=== PATIENT | female | born 1985 | race Caucasian/White ===

== ENCOUNTER → 2018-11-18 | Outpatient (REF) | payer MEDICARE | LOC: M LAB REF 12:29 | PROVIDERS: ATTEND Physician Assistant | DX: R30.0 Dysuria (principal) ==

== ENCOUNTER → 2018-11-29 | Outpatient (REF) | payer MEDICARE, MEDICAID ==
[2018-11-29 11:39] LABS: ALBUMIN 3.6 GM/DL (3.2-5.2); ALT/SGPT 32 U/L (12-78); BILIRUBIN,TOTAL 0.4 MG/DL (0.2-1.0); BLOOD UREA NITROGEN 28 MG/DL (7-18); CALCIUM LEVEL 8.3 MG/DL (8.5-10.1); CARBON DIOXIDE LEVEL 27 MEQ/L (21-32); CHLORIDE LEVEL 110 MEQ/L (98-107); CHOLESTEROL LEVEL 203 MG/DL (<200); CHOLESTEROL RISK RATIO 2.671 (<5); CREATININE FOR GFR 0.61 MG/DL (0.55-1.30); GLOMERULAR FILTRATION RATE > 60.0 (>60); GLUCOSE, FASTING 90 MG/DL (70-100); HDL CHOLESTEROL 76 MG/DL (>40); LDL CHOLESTEROL 121 MG/DL (<100); NON-HDL-C 127 MG/DL; POTASSIUM SERUM 4.3 MEQ/L (3.5-5.1); SODIUM LEVEL 142 MEQ/L (136-145); THYROID STIMULATING HORMONE 0.996 uIU/ML (0.358-3.740); TOTAL PROTEIN 6.8 GM/DL (6.4-8.2); TRIGLYCERIDES LEVEL 28 MG/DL (<150)
== END ==
LOC: M SFHCPLAZ 08:07
PROVIDERS: ATTEND Nurse Practitioner Family
DX: Z00.00 Encounter for general adult medical examination without abnormal findings (principal); Z13.220 Encounter for screening for lipoid disorders; F41.8 Other specified anxiety disorders

== ENCOUNTER → 2019-01-12 | Outpatient (CLI) | payer MEDICARE, MEDICAID ==
[2019-01-12 11:43] LABS: FREE T4 0.96 NG/DL (0.76-1.46); THYROID STIMULATING HORMONE 1.3 uIU/ML (0.358-3.740)
== END ==
LOC: M LAB 10:39
PROVIDERS: ATTEND Internal Medicine Gastroenterology
DX: R10.84 Generalized abdominal pain (principal)

== ENCOUNTER 2019-01-19 08:07 | Emergency (ER) | payer MEDICARE, MEDICAID ==
[~2019-01-19] VITALS: Ht 167.6 cm; Wt 82.8 kg
[2019-01-19] MEDS ORDERED: MONT10TA2 (08:16)
[2019-01-19] MEDS ORDERED: ALL10TAB28 (08:16)
[2019-01-19] MEDS ORDERED: FLON1SPR NARES (08:16)
[2019-01-19] MEDS ORDERED: KETOROLAC 30 MG/ML VIAL (J1885) IV ONE (08:45)
[2019-01-19 09:22] LABS: BASO % 0.3 % (0.0-1.0); EOS # 0.1 10^3/uL (0.0-0.50); HEMATOCRIT 42.8 % (36.0-47.0); HEMOGLOBIN 14.2 g/dl (12.0-15.5); LYMPH # 1.5 10^3/uL (1.5-4.5); MEAN CORPUSCULAR HEMOGLOBIN 30.3 pg (27.0-33.0); MEAN CORPUSCULAR HGB CONC 33.2 g/dl (32.0-36.5); MEAN CORPUSCULAR VOLUME 91.3 fl (80.0-96.0); MONO # 0.7 10^3/uL (0.0-0.8); NEUTROPHILS # 4.2 10^3/uL (1.8-7.7); NEUTROPHILS % 64.5 % (36.0-66.0); PLATELET COUNT, AUTOMATED 122 10^3/uL (150-450); RED BLOOD COUNT 4.69 10^6/uL (4.00-5.40); WHITE BLOOD COUNT 6.5 10^3/uL (4.0-10.0)
[2019-01-19 09:46] LABS: ALBUMIN 3.4 GM/DL (3.2-5.2); ALT/SGPT 37 U/L (12-78); BILIRUBIN,DIRECT 0.1 MG/DL (0.0-0.2); BILIRUBIN,TOTAL 0.4 MG/DL (0.2-1.0); BLOOD UREA NITROGEN 26 MG/DL (7-18); CARBON DIOXIDE LEVEL 26 MEQ/L (21-32); CHLORIDE LEVEL 110 MEQ/L (98-107); CREATININE FOR GFR 0.62 MG/DL (0.55-1.30); GLOMERULAR FILTRATION RATE > 60.0 (>60); GLUCOSE, FASTING 89 MG/DL (70-100); LIPASE 125 U/L (73-393); SODIUM LEVEL 140 MEQ/L (136-145); TOTAL PROTEIN 6.5 GM/DL (6.4-8.2)
[2019-01-19] MEDS ORDERED: NS 1,000 ML IV ONE (10:15)
[2019-01-19] MEDS ORDERED: MORPHINE 2 MG/ML 1ML SYRINGE (J2270) IV ONE (10:30)
--- NOTE | 2019-01-19 10:55 | REP ---
PELVIC ULTRASOUND: Real-time sonographic evaluation of the pelvis performed utilizing transabdominal and endovaginal technique. Bladder measures 8.8 x 4.0 x 10.0 cm. Uterus measures 7.3 x 4.2 x 4.6 cm. Endometrial thickness is 34 mm and there appears to be a large amount of complex material within the endometrial cavity. Reportedly the patient has not menstruated. Right ovary is normal in size and echotexture, measuring 4.0 x 3.0 x 2.7 cm. There is no torsion. Left ovary cannot be visualized. I see no adnexal mass or free fluid. IMPRESSION: Large amount of complex material in the endometrial canal. Reportedly the patient has never had menstruation. Normal right ovary. Left ovary not visualized. No mass or free fluid seen. Electronically Signed by Gene Nicole MD 01/20/2019 12:10 P
[2019-01-19] MEDS ORDERED: MACR100C43 PO (11:27)
[2019-01-19 11:43] VITALS: BP 126/75
--- NOTE | 2019-01-23 15:16 | ED PDOC ---
Post-Departure Follow-Up dr ame chris faxed formal report of pelvic us for fu Celso Zarate MD January 23, 2019 15:16
== END 2019-01-19 11:51 | disposition home or self-care (01) ==
LOC: M ED 08:07
DX: N30.90 Cystitis, unspecified without hematuria (principal); D69.6 Thrombocytopenia, unspecified; Z88.0 Allergy status to penicillin; Z88.8 Allergy status to other drugs, medicaments and biological substances; Z91.048 Other nonmedicinal substance allergy status
CPT/HCPCS: 76856; 80048; 80076; 81001; 81025; 83605; 83690; 85025; 87088; 87186; 96374; 96375; 99284; J1885; J2270

== ENCOUNTER → 2019-04-06 | Outpatient (CLI) | payer MEDICARE, MEDICAID ==
[~2019-04-06] MED LIST: ALL10TAB28; FLON1SPR NARES; MACR100C43 PO; MONT10TA2; OXYC1TAB23 PO; PROHANCE 279.3MG/ML 15ML VIAL (A9576) As Ordered ONE; PROHANCE 279.3MG/ML 5ML VIAL (A9576) As Ordered ONE; ULTR50TA8 PO
--- NOTE | 2019-04-07 10:54 | REP ---
MRI PELVIS WITH AND WITHOUT CONTRAST: Multiple sequences obtained in the axial, coronal, and sagittal planes prior to and following the intravenous administration of 16.2 mL ProHance. There appears to be a hypoplastic uterus present which is deviated significantly toward the left of midline. Approximate length of the uterus is 7.5 cm, approximate AP dimension 3 cm and transverse 3.3 cm. Fluid is seen in the endometrial canal, maximum AP diameter is 7 mm. There is no definite abnormal signal in the junctional zone or myometrium. Ovaries are normal. No adnexal mass is seen. Normal size follicles are seen in each ovary. The left ovary is located superiorly in the left pelvis between the psoas muscle and left colon. There appears to be a very small amount of free fluid in the left inferior pelvis. Visualized osseous structures demonstrate no marrow signal abnormality. There is no adenopathy in the pelvis. IMPRESSION: Hypoplastic uterus deviated to the left of midline as discussed above. Fluid is seen in the endometrial canal with AP diameter of 7 mm. Normal ovaries. No mass. There appears to be a very small amount of free fluid in the left inferior pelvis. Electronically Signed by Gene Nicole MD 04/09/2019 07:21 P
== END ==
LOC: M RAD 16:03
PROVIDERS: ATTEND Obstetrics & Gynecology
DX: Q51.818 Other congenital malformations of uterus (principal)
CPT/HCPCS: 72197; A9576

== ENCOUNTER → 2019-05-01 | Outpatient (CLI) | payer MEDICARE, MEDICAID ==
[~2019-05-01] MED LIST changes: +OMEP-221; -PROHANCE 279.3MG/ML 15ML VIAL (A9576) As Ordered ONE; -PROHANCE 279.3MG/ML 5ML VIAL (A9576) As Ordered ONE; +RANI150T14; +RANI1TAB38 PO
[2019-05-01 13:43] LABS: BASO # 0.1 10^3/uL (0.0-0.2); BASO % 0.8 % (0.0-1.0); EOS # 0.1 10^3/uL (0.0-0.50); HEMATOCRIT 46.1 % (36.0-47.0); HEMOGLOBIN 15.2 g/dl (12.0-15.5); LYMPH % 45.9 % (24.0-44.0); MEAN CORPUSCULAR HEMOGLOBIN 30.2 pg (27.0-33.0); MEAN CORPUSCULAR VOLUME 91.5 fl (80.0-96.0); MONO # 0.6 10^3/uL (0.0-0.8); NEUTROPHILS # 2.7 10^3/uL (1.8-7.7); NEUTROPHILS % 42.1 % (36.0-66.0); PLATELET COUNT, AUTOMATED 142 10^3/uL (150-450); RED BLOOD COUNT 5.04 10^6/uL (4.00-5.40); WHITE BLOOD COUNT 6.4 10^3/uL (4.0-10.0)
== END ==
LOC: M LAB 12:21
PROVIDERS: ATTEND Obstetrics & Gynecology
DX: N91.2 Amenorrhea, unspecified (principal)

== ENCOUNTER 2019-05-07 10:22 | Emergency (ER) | payer MEDICARE, MEDICAID ==
[~2019-05-07] VITALS: Ht 167.6 cm; Wt 75.0 kg
[~2019-05-07 10:22] MED LIST changes: -ALL10TAB28; +ALL10TAB29; -OMEP-221; -RANI150T14; -RANI1TAB38 PO
[2019-05-07] MEDS ORDERED: OMEP-221 (10:37)
[2019-05-07] MEDS ORDERED: RANI1TAB38 PO (10:37)
[2019-05-07] MEDS ORDERED: RANI150T14 (10:37)
[2019-05-07 11:31] LABS: BASO % 0.6 % (0.0-1.0); EOS # 0.1 10^3/uL (0.0-0.50); EOS % 2.6 % (0.0-3.0); HEMATOCRIT 39.5 % (36.0-47.0); HEMOGLOBIN 12.9 g/dl (12.0-15.5); LYMPH # 2.1 10^3/uL (1.5-4.5); LYMPH % 44.5 % (24.0-44.0); MEAN CORPUSCULAR HEMOGLOBIN 30.4 pg (27.0-33.0); MEAN CORPUSCULAR HGB CONC 32.7 g/dl (32.0-36.5); MEAN CORPUSCULAR VOLUME 93.2 fl (80.0-96.0); MONO # 0.3 10^3/uL (0.0-0.8); MONO % 7.1 % (0.0-5.0); NEUTROPHILS # 2.1 10^3/uL (1.8-7.7); PLATELET COUNT, AUTOMATED 137 10^3/uL (150-450); RED BLOOD COUNT 4.24 10^6/uL (4.00-5.40); WHITE BLOOD COUNT 4.7 10^3/uL (4.0-10.0)
[2019-05-07 11:43] LABS: INR 1.11
[2019-05-07 11:49] LABS: ALBUMIN 3.1 GM/DL (3.2-5.2); ALT/SGPT 47 U/L (12-78); BILIRUBIN,TOTAL 0.2 MG/DL (0.2-1.0); BLOOD UREA NITROGEN 18 MG/DL (7-18); CALCIUM LEVEL 8.4 MG/DL (8.5-10.1); CARBON DIOXIDE LEVEL 29 MEQ/L (21-32); CHLORIDE LEVEL 110 MEQ/L (98-107); CK-MB VALUE MASS < 1.0 NG/ML (<3.6); CPK CREATINE PHOSPHOKINASE 258 U/L (26-192); GLOMERULAR FILTRATION RATE > 60.0 (>60); GLUCOSE, FASTING 97 MG/DL (70-100); LIPASE 148 U/L (73-393); MB/CK RELATIVE INDEX 0.39 (< OR =4); POTASSIUM SERUM 3.7 MEQ/L (3.5-5.1); SODIUM LEVEL 141 MEQ/L (136-145); TOTAL PROTEIN 6.5 GM/DL (6.4-8.2); TROPONIN I < 0.02 NG/ML (< 0.10)
[2019-05-07] MEDS ORDERED: ISOVUE-370 76% 100ML VIAL (Q9967) As Ordered ONE (12:02)
[2019-05-07 14:16] VITALS: BP 111/70
--- NOTE | 2019-05-07 14:41 | REP ---
LEFT LOWER EXTREMITY DOPPLER VENOUS ULTRASOUND: 05/07/2019. Clinical history: Lower extremity swelling, evaluate for DVT. Comparison: None. Technique: The deep venous system of the left lower extremity is evaluated with amin scale imaging, compression ultrasound, color imaging and duplex Doppler interrogation. Examination from the groin through the popliteal fossa into the proximal calf. Findings: There is full compressibility from the common femoral vein in the inguinal region through the popliteal vein. Color imaging confirms patency throughout the course of the deep venous system. There is respiratory variation and augmented flow at all levels. Impression: 1. No Doppler venous ultrasound evidence of DVT in the left lower extremity. Electronically Signed by Tristin Madden MD 05/07/2019 08:38 P
--- NOTE | 2019-05-07 19:25 | ECGEPIP ---
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
--- NOTE | 2019-05-08 08:09 | REP ---
AP PORTABLE CHEST: 05/07/2019. Clinical history: Chest pain. Findings: No prior study. Lungs mildly hypoinflated but there is still a left ventricular configuration to the heart. No effusion or acute infiltrate. No addison edema. The aorta and airway are intact. There is no widening of the mediastinum. There is a question of a small amount of free air under the diaphragm. Bones intact. Impression: 1. Lungs hypoinflated which may exaggerate heart size although there is a left ventricular configuration. 2. No infiltrate, effusion, addison edema. 3. Some free air under the diaphragm. I spoke with the attending ED physician at the time of this dictation and learned the patient had hysterectomy 2 days ago. This is appropriate volume of air for that time interval. Electronically Signed by Tristin Madden MD 05/08/2019 08:24 A
--- NOTE | 2019-05-08 08:29 | REP ---
CT ANGIOGRAM CHEST: 05/07/2019. Clinical history: Recent hysterectomy, chest pain. Evaluate for PE. Comparison: Portable chest today. Technique: Bolus 75 ml Isovue 370 scanning through the chest with CT angiogram protocol with coronal and sagittal standard and MIP reformats. Findings: Lung windows show some dependent atelectatic changes posteriorly but no effusion, infiltrate, other areas of atelectasis or mass. No pleural thickening or pneumothorax. There is some free air under the diaphragm on both sides in this patient who had hysterectomy a few days ago. Heart size with left ventricular prominence. No pericardial thickening or effusion. The aorta is without aneurysm or dissection. There is no mediastinal hematoma. The main, right and left pulmonary arteries and the mediastinum are without filling defects. The lobar, segmental and subsegmental pulmonary arteries are without filling defects or vessel cutoff to suggest pulmonary emboli. Contrast density is excellent. There is no mediastinal or hilar adenopathy. There is no axillary or supraclavicular mass. 1.9 cm cyst in the region of the right thyroid lobe and a few smaller ones. Bone windows show the sternum, manubrium, clavicles, scapulae, visualized portions of the humeral heads, ribs and spine without any acute findings. Free air in the upper abdomen related to the recent hysterectomy but the liver and spleen are otherwise unremarkable. Stomach without hiatal hernia. Adrenal glands, visible were unremarkable. Impression: 1. There is no CT evidence for pulmonary thromboembolism, aortic aneurysm or dissection. No mediastinal or hilar adenopathy, mediastinal hematoma, pneumothorax, pneumomediastinum. 2. There is a small amount of free air in the upper abdomen in this patient who is a few days status-post hysterectomy. 3. No infiltrate or effusion. Some minor dependent atelectasis. Electronically Signed by Tristin Madden MD 05/08/2019 08:47 A
== END 2019-05-07 14:18 | disposition home or self-care (01) ==
LOC: M ED 10:22
DX: R20.2 Paresthesia of skin (principal); R06.00 Dyspnea, unspecified; F41.9 Anxiety disorder, unspecified; Z79.899 Other long term (current) drug therapy; Z88.0 Allergy status to penicillin; Z88.8 Allergy status to other drugs, medicaments and biological substances; Z91.018 Allergy to other foods
CPT/HCPCS: 36415; 71045; 71275; 80053; 82550; 82553; 83690; 84484; 85025; 85610; 93005; 93041; 93971; 94760; 99285; Q9967